=== PATIENT | male | born 1980 ===

== ENCOUNTER 2018-06-18 18:14 | Emergency (ER) | payer SELFPAY ==
--- NOTE | 2018-06-18 19:08 | C.PDOC ---
History Of Present Illness 38 year old male, with no significant past medical history, presents to the ED for evaluation of left-sided chest pain that has been intermittent for 2 days. Patient describes his pain as a sharp, stabbing sensation that is associated with mild shortness of breath. Patient's symptoms are non-pleuritic. Patient took some amlodipine from his friend, with mild relief. Otherwise, he denies fever, chills, night swears, radiating of pain to back, orthopnea, shortness of breath with exertion, leg swelling, recent trauma or surgery, hemoptysis, family history of DVT, or history of similar symptoms in the past. Chief Complaint (Nursing): Chest Pain History Per: Patient History/Exam Limitations: no limitations Onset/Duration Of Symptoms: Days (2), Intermittent Episodes Current Symptoms Are (Timing): Still Present Quality: Sharp, "Pain", Other (stabbing) Additional History Per: Patient Past Medical History Reviewed: Historical Data, Nursing Documentation, Vital Signs Vital Signs: Last Vital Signs Temp 98.5 F 06/18/18 18:18 Pulse 78 06/18/18 18:18 Resp 17 06/18/18 18:18 BP 148/94 H 06/18/18 18:18 Pulse Ox 99 06/18/18 18:18 - Medical History PMH: No Chronic Diseases Surgical History: No Surg Hx Family History: States: Unknown Family Hx - Social History Hx Alcohol Use: Yes Hx Substance Use: No - Immunization History Hx Tetanus Toxoid Vaccination: No Hx Influenza Vaccination: No Hx Pneumococcal Vaccination: No Review Of Systems Constitutional: Negative for: Fever, Chills, Sweats, Weakness, Malaise Eyes: Negative for: Pain, Vision Change, Eyelid Inflammation, Redness ENT: Negative for: Ear Pain, Ear Discharge, Nose Pain, Nose Congestion, Mouth Pain Cardiovascular: Positive for: Chest Pain (left-sided ). Negative for: Palpitations, Orthopnea Respiratory: Positive for: Shortness of Breath. Negative for: Cough, SOB with Excertion Gastrointestinal: Negative for: Nausea, Vomiting, Abdominal Pain, Constipation, Melena, Hematochezia Genitourinary: Negative for: Dysuria, Hematuria Musculoskeletal: Negative for: Neck Pain, Back Pain, Other (leg swelling ) Skin: Negative for: Rash, Lesions Neurological: Negative for: Change in Speech, Confusion, Seizures, Altered Mental Status, Headache Physical Exam - Physical Exam Appears: Well, Non-toxic, No Acute Distress Skin: Normal Color, Warm, Dry Head: Atraumatic, Normacephalic Eye(s): bilateral: Normal Inspection, PERRL, EOMI Ear(s): Bilateral: Normal Nose: Normal, No Flaring, No Discharge Oral Mucosa: Moist Tongue: Normal Appearing Lips: Normal Appearing Teeth: Normal Dentition Gingiva: Normal Appearing Throat: Normal, No Erythema, No Exudate Neck: Normal, Normal ROM, Supple, Other (no meningeal signs) Lymphatic: Normal Exam, No Adenopathy Chest: Symmetrical, No Deformity, No Tenderness Cardiovascular: Rhythm Regular, No Murmur Respiratory: Normal Breath Sounds, No Rales, No Rhonchi, No Wheezing Gastrointestinal/Abdominal: Normal Exam, Soft, No Tenderness Back: Normal Inspection, No CVA Tenderness, No Vertebral Tenderness Extremity: Normal ROM, Capillary Refill (less than 2 seconds ) Extremity: Bilateral: Atraumatic Neurological/Psych: Oriented x3, Normal Speech, Normal Cognition, No Cerebellar Signs, Normal Motor Gait: Steady ED Course And Treatment - Laboratory Results Result Diagrams: 06/18/18 19:22 06/18/18 19:22 ECG: Interpreted By Me, Viewed By Me ECG Rhythm: Sinus Rhythm Interpretation Of ECG: Normal Sinus Rhythm at rate 76bpm. No STEMI. Flat T wave in lead III. Rate From EC O2 Sat by Pulse Oximetry: 99 (on RA) Pulse Ox Interpretation: Normal Medical Decision Making Medical Decision Making: Impression: 38 year old male with intermittent chest pain. Low risk chest pain per Heart score and Low pretest well. Pt PERCED Out. No fever, chills or night sweats or cough. No body aches. Likely chest wall pain. Differential diagnoses include but are not limited to: chest wall pain Plan: * bloodwork * CXR * EKG * reassess and disposition Progress: 2210 Low pretest wells, PERC out Trop unremarkable heart score low: Age: 0 RF: 0 Story: 1 EK trop: 0 No MUNSON, orthopnea or PND XRay unremarkable clear for d/c home with return indications and f/u. Pt agreeable to plan. Disposition - Disposition Referrals: Parish Betancur MD [Staff Provider] - [facility] [Outside] [facility] [Outside] [facility] [Outside] Disposition: HOME/ ROUTINE Disposition Time: 22:13 Condition: GOOD Additional Instructions: ALINE LICEA, thank you for letting us take care of you today. Your provider was Braulio Gan and you were treated for CHEST PAIN ,SOB. The emergency medical care you received today was directed at your acute symptoms. If you were prescribed any medication, please fill it and take as directed. It may take several days for your symptoms to resolve. Return to the Emergency Department if your symptoms worsen, do not improve, or if you have any other problems. Please contact your doctor or call one of the physicians/clinics you have been referred to that are listed on the Patient Visit Information form that is included in your discharge packet. Bring any paperwork you were given at discharge with you along with any medications you are taking to your follow up visit. Our treatment cannot replace ongoing medical care by a primary care provider outside of the emergency department. Thank you for allowing the [facility] team to be part of your care today. If you had an X-Ray or CT scan: A Radiologist will review the ED reading if any change in treatment is needed we will contact you. If you had a blood, urine, or wound culture: It will take several days for the results, if any change in treatment is needed we will contact you. If you had an STI test: It will take 48 hours for the results. Please call after 1 week if you have not heard back. Instructions: Chest Pain (DC) Forms: [email or web address] (Japanese), [email or web address] (Kiswahili) Print Language: DANISH - Clinical Impression Clinical Impression: Chest pain - Scribe Statement The provider has reviewed the documentation as recorded by the Scribe (Ashley Kuhn) Provider Attestation: All medical record entries made by the Scribe were at my direction and personally dictated by me. I have reviewed the chart and agree that the record accurately reflects my personal performance of the history, physical exam, medical decision making, and the department course for this patient. I have also personally directed, reviewed, and agree with the discharge instructions and d isposition.
[2018-06-18 19:37] LABS: BASO % 0.3 % (0.0-2.0); EOS % 0.2 % (0.0-4.0); HEMOGLOBIN 14.1 g/dL (12.0-18.0); LYMPH # 1.9 K/uL (1.0-4.3); LYMPH % 21.7 % (20.0-40.0); MEAN CORPUSCULAR HEMOGLOBIN 31.2 pg (27.0-31.0); MEAN CORPUSCULAR HGB CONC 33.5 g/dL (33.0-37.0); MEAN PLATELET VOLUME 9.1 fL (7.2-11.7); MONO # 0.7 K/uL (0.0-0.8); MONO % 7.4 % (0.0-10.0); NEUT # 6.2 K/uL (1.8-7.0); NEUT % 70.4 % (50.0-75.0); RBC 4.52 Mil/uL (4.40-5.90); RED CELL DISTRIBUTION WIDTH 13.7 % (11.5-14.5); WHITE BLOOD COUNT 8.8 K/uL (4.8-10.8)
[2018-06-18 20:05] LABS: ALB/GLOB RATIO 1.6 (1.0-2.1); ALBUMIN 4.9 g/dL (3.5-5.0); ALT/SGPT 61 U/L (21-72); AST/SGOT 54 U/L (17-59); BLOOD UREA NITROGEN 21 mg/dL (9-20); CALCIUM 9.6 mg/dl (8.6-10.4); GFR NON-AFRICAN AMERICAN > 60
[2018-06-18 23:09] VITALS: BP 146/99; PULSE 75; RESP 16; TEMP 98
[2018-06-19 01:38] VITALS: O2SAT 99
--- NOTE | 2018-06-19 09:56 | RAD ---
Date of service: 06/18/2018 HISTORY: Chest pain COMPARISON: No prior. TECHNIQUE: Chest PA and lateral FINDINGS: LINES AND TUBES: None. LUNG AND PLEURA: The lungs are well inflated and clear. No pleural effusion or pneumothorax. HEART AND MEDIASTINUM: The heart is not enlarged. No aortic atherosclerotic calcifications present. The hilar and mediastinal contours are within normal limits. SKELETAL STRUCTURES: The bony structures are within normal limits for the patient's age. VISUALIZED UPPER ABDOMEN: Normal. OTHER FINDINGS: None. IMPRESSION: No active pulmonary disease.
--- NOTE | 2018-06-19 11:06 | CARD ---
APPROVED REPORT Date of service: 06/18/2018 EKG Measurement Heart [id number] <Conclusion> Normal sinus rhythm Incomplete right bundle branch block Borderline ECG
== END 2018-06-18 23:13 | disposition home or self-care (01) ==
LOC: C.ER 18:14
DX: R07.9 Chest pain, unspecified (principal)

== ENCOUNTER 2018-06-23 06:58 | Emergency (ER) | payer OTHER ==
[2018-06-23 07:13] VITALS: TEMP 98.7
[2018-06-23] MEDS ORDERED: Aspirin 325 mg EC Tablets PO STA (08:31)
[2018-06-23] MEDS ORDERED: Aspirin 325 mg EC Tablets PO ONE (08:49)
[2018-06-23 08:53] LABS: BASO % 0.4 % (0.0-2.0); EOS % 0.4 % (0.0-4.0); LYMPH # 1.1 K/uL (1.0-4.3); LYMPH % 15.9 % (20.0-40.0); MEAN CELL VOLUME 93.3 fL (80.0-94.0); MEAN CORPUSCULAR HEMOGLOBIN 31.6 pg (27.0-31.0); MEAN CORPUSCULAR HGB CONC 33.9 g/dL (33.0-37.0); MEAN PLATELET VOLUME 9.7 fL (7.2-11.7); MONO # 0.6 K/uL (0.0-0.8); MONO % 8.7 % (0.0-10.0); NEUT # 5.3 K/uL (1.8-7.0); NEUT % 74.6 % (50.0-75.0); NRBC % 0.1 % (0.0-2.0); RBC 4.75 Mil/uL (4.40-5.90); RED CELL DISTRIBUTION WIDTH 13.3 % (11.5-14.5); WHITE BLOOD COUNT 7.1 K/uL (4.8-10.8)
--- NOTE | 2018-06-23 08:57 | C.PDOC ---
History Of Present Illness 38 y/o male, otherwise well, presents to the ED complaining of left-sided chest pain radiating to the left shoulder for 2 days. Associated with SOB. He denies any headache, nausea, vomiting, diaphoresis, dizziness, abdominal pain, neck pain, fever, or chills. Pain is not modified by exertion, notes he was sitting at rest when the pain began. Patient was seen here on 06/18 for similar complaints, had EKG and blood work, and was discharged home. Time Seen by Provider: 06/23/18 07:24 Chief Complaint (Nursing): Chest Pain History Per: Patient History/Exam Limitations: no limitations Onset/Duration Of Symptoms: Days (x 2) Current Symptoms Are (Timing): Still Present Associated Symptoms: Dyspnea Alleviating Factors: None Past Medical History Reviewed: Historical Data, Nursing Documentation, Vital Signs Vital Signs: Last Vital Signs Temp 98.7 F 06/23/18 07:10 Pulse 72 06/23/18 07:10 Resp 20 06/23/18 07:10 BP 142/89 06/23/18 07:10 Pulse Ox 95 06/23/18 07:10 Surgical History: No Surg Hx Family History: States: Unknown Family Hx - Social History Hx Tobacco Use: No Hx Alcohol Use: Yes Hx Substance Use: No - Immunization History Hx Tetanus Toxoid Vaccination: No Hx Influenza Vaccination: No Hx Pneumococcal Vaccination: No Review Of Systems Except As Marked, All Systems Reviewed And Found Negative. Constitutional: Negative for: Fever, Chills, Sweats ENT: Negative for: Nose Congestion Cardiovascular: Positive for: Chest Pain Respiratory: Positive for: Shortness of Breath. Negative for: Cough, SOB with Excertion, Pleuritic Pain Gastrointestinal: Negative for: Nausea, Vomiting, Abdominal Pain Musculoskeletal: Negative for: Neck Pain, Back Pain Neurological: Negative for: Weakness, Numbness, Headache, Dizziness Physical Exam - Physical Exam Appears: Well, Non-toxic, No Acute Distress Skin: Normal Color, Warm, No Diaphoretic Head: Atraumatic, Normacephalic Eye(s): bilateral: Normal Inspection, PERRL, EOMI Oral Mucosa: Moist Neck: Normal ROM Chest: Symmetrical, No Tenderness (no reproducible pain on palpation) Cardiovascular: Rhythm Regular, No Murmur Respiratory: Normal Breath Sounds, No Rales, No Rhonchi, No Wheezing Gastrointestinal/Abdominal: Soft, No Tenderness, No Distention Extremity: Bilateral: Atraumatic, Normal Color And Temperature, Normal ROM Pulses: Left Dorsalis Pedis: Normal, Right Dorsalis Pedis: Normal Neurological/Psych: Oriented x3, Normal Speech ED Course And Treatment - Laboratory Results Result Diagrams: 06/23/18 08:45 06/23/18 08:45 ECG: Interpreted By Me, Viewed By Me ECG Rhythm: Sinus Rhythm Interpretation Of ECG: Incomplete R BBB. No ST elevations or depressions. Consistent with prior EKG on 06/18 Rate From EC O2 Sat by Pulse Oximetry: 95 (RA) Pulse Ox Interpretation: Normal Medical Decision Making Medical Decision Making: Impression: chest pain, SOB Differential diagnosis includes but is not limited to: angina vs gastritis vs musculoskeletal pain vs pleuritic pain Plan: - EKG - Blood work with cardiac enzymes - Urinalysis - 325 mg PO Aspirin Labs reviewed: Initial troponin negative. Will obtain 2nd set of enzymes at 4 hours. Repeat EKG is negative. 2nd trop negative. Final Impression: non-cardiac chest pain 12:30 On reassessment patient reports feeling better and remains AAOx3, in no acute distress. VSS. Patient is stable for discharge home, instructed to follow up in the clinic. Disposition Counseled Patient/Family Regarding: Studies Performed, Diagnosis, Need For Followup, Rx Given - Disposition Referrals: [facility] [place] [Outside] Disposition: HOME/ ROUTINE Disposition Time: 12:29 Condition: STABLE Prescriptions: Aspirin [Aspirin EC] 325 mg PO DAILY #20 tablet. Instructions: Chest Pain (DC) Forms: Gen Discharge Inst Romanian, [facility] (Romanian), Work Excuse - POA Present On Arrival: None Core Measure Indicators: Chest Pain - Clinical Impression Clinical Impression: Chest discomfort - Scribe Statement The provider has reviewed the documentation as recorded by the Magdy Stock Provider Attestation: All medical record entries made by the Magdy were at my direction and personally dictated by me. I have reviewed the chart and agree that the record accurately reflects my personal performance of the history, physical exam, medical decision making, and the department course for this patient. I have also personally directed, reviewed, and agree with the discharge instructions and disposition.
[2018-06-23 09:08] LABS: URINE BACTERIA RARE (<OCC); URINE BILIRUBIN NEGATIVE (NEGATIVE); URINE BLOOD NEGATIVE (NEGATIVE); URINE CLARITY Clear (Clear); URINE COLOR Yellow (YELLOW); URINE GLUCOSE (UA) NORMAL (Normal); URINE LEUKOCYTE ESTERASE NEG Leu/uL (Negative); URINE PROTEIN NEGATIVE (NEGATIVE); URINE UROBILINOGEN NORMAL mg/dL (0.2-1.0)
[2018-06-23 09:15] LABS: ALB/GLOB RATIO 1.7 (1.0-2.1); ALBUMIN 4.9 g/dL (3.5-5.0); ALT/SGPT 70 U/L (21-72); AST/SGOT 54 U/L (17-59); BLOOD UREA NITROGEN 17 mg/dL (9-20); CALCIUM 9.8 mg/dl (8.6-10.4); GFR NON-AFRICAN AMERICAN > 60
[2018-06-23 09:20] LABS: B-TYPE NATRIURETIC PEPTIDE 62.5 pg/mL (0-450)
[2018-06-23 09:38] LABS: BARBITURATES, UR NEGATIVE (NEGATIVE); BENZODIAZEPINES, UR NEGATIVE (NEGATIVE); OPIATES, UR NEGATIVE (NEGATIVE); PHENCYCLIDINE, UR NEGATIVE (NEGATIVE)
[2018-06-23 12:48] VITALS: BP 121/78; PULSE 70; RESP 17; O2SAT 97
--- NOTE | 2018-06-25 06:40 | CARD ---
APPROVED REPORT Date of service: 06/23/2018 EKG Measurement Heart [id number] [place] [id number] <Conclusion> Normal sinus rhythm Nonspecific intraventricular conduction delay Borderline ECG
--- NOTE | 2018-06-25 06:46 | CARD ---
APPROVED REPORT Date of service: 06/23/2018 EKG Measurement Heart [id number] <Conclusion> Normal sinus rhythm Rightward axis Incomplete right bundle branch block Borderline ECG
== END 2018-06-23 13:03 | disposition home or self-care (01) ==
LOC: C.ER 06:58
DX: R07.89 Other chest pain (principal)

== ENCOUNTER 2018-07-21 09:27 | Emergency (ER) | payer OTHER ==
[2018-07-21 09:46] VITALS: BMI 32.8
[2018-07-21 09:49] VITALS: RESP 18; O2SAT 97
--- NOTE | 2018-07-21 10:22 | C.PDOC ---
History Of Present Illness 38 y/o male, otherwise well, presents to the ED complaining of left-sided chest pain, waxing and waning for the past couple of days. Pain is localized to the left upper chest radiating to left shoulder, and is dull and intermittent. Associated with some SOB. Otherwise patient denies any dizziness, nausea, vomiting, sweats, abdominal pain, productive cough, focal weakness, or numbness. No prior cardiac hx. Patient denies strenuous labor. He has been seen twice before for the same complaint. Time Seen by Provider: 07/21/18 10:07 Chief Complaint (Nursing): Chest Pain History Per: Patient History/Exam Limitations: no limitations Onset/Duration Of Symptoms: Waxing/Waning, Intermittent Episodes Current Symptoms Are (Timing): Still Present Quality: Dull Past Medical History Reviewed: Historical Data, Nursing Documentation, Vital Signs Vital Signs: Last Vital Signs Temp 99.0 F 07/21/18 09:47 Pulse 79 07/21/18 09:47 Resp 18 07/21/18 09:47 BP 143/93 H 07/21/18 09:47 Pulse Ox 97 07/21/18 09:47 Surgical History: No Surg Hx Family History: States: Unknown Family Hx - Social History Hx Tobacco Use: No Hx Alcohol Use: Yes Hx Substance Use: No - Immunization History Hx Tetanus Toxoid Vaccination: No Hx Influenza Vaccination: No Hx Pneumococcal Vaccination: No Review Of Systems Except As Marked, All Systems Reviewed And Found Negative. Constitutional: Negative for: Fever, Sweats Eyes: Negative for: Vision Change Cardiovascular: Positive for: Chest Pain. Negative for: Palpitations Respiratory: Positive for: Shortness of Breath. Negative for: Cough, Sputum Gastrointestinal: Negative for: Nausea, Vomiting, Abdominal Pain Musculoskeletal: Negative for: Back Pain Skin: Negative for: Rash Neurological: Negative for: Weakness, Numbness, Headache, Dizziness Physical Exam - Physical Exam Appears: Non-toxic, No Acute Distress Skin: Normal Color, Warm, No Diaphoretic Head: Atraumatic, Normacephalic Eye(s): bilateral: Normal Inspection, PERRL, EOMI Oral Mucosa: Moist Neck: Normal ROM Chest: Symmetrical Cardiovascular: Rhythm Regular, No Murmur Respiratory: No Rales, No Rhonchi, No Wheezing, Other (Lungs CTA bilaterally) Gastrointestinal/Abdominal: Bowel Sounds (normal), Soft, No Tenderness, No Distention Extremity: Normal ROM, No Pedal Edema, No Calf Tenderness Pulses: Left Dorsalis Pedis: Normal, Right Dorsalis Pedis: Normal Neurological/Psych: Oriented x3, Normal Speech, Normal Cranial Nerves, Other (No focal deficits) ED Course And Treatment - Laboratory Results Result Diagrams: 07/21/18 11:11 07/21/18 11:11 O2 Sat by Pulse Oximetry: 97 (RA) Pulse Ox Interpretation: Normal Medical Decision Making Medical Decision Making: EKG: NSR @ 72 bpm, no ST elevations or depressions Old records reviewed, EKG appears consistent with prior studies. Initial Plan: - Motrin for pain control - Basic blood work w/ trop ordered Prior visits demonstrate patient has had cardiac work-ups including labs and CXR, all negative. Trop negative. EKG shows no acute changes. On reassessment patient is resting comfortably, in NAD. VSS. Patient is stable for discharge home. Counseled regarding diagnosis and follow- up instructions. Final Impression: Costochondritis Disposition Counseled Patient/Family Regarding: Diagnosis, Need For Followup, Rx Given - Disposition Referrals: [facility] [Outside] Disposition: HOME/ ROUTINE Disposition Time: 12:34 Condition: STABLE Prescriptions: Ibuprofen [Motrin] 600 mg PO TID #15 tab Instructions: Costochondritis Forms: Gen Discharge Inst Lao, [facility] (Lao), Work Excuse - POA Present On Arrival: None Core Measure Indicators: Chest Pain - Clinical Impression Clinical Impression: Chest wall pain - Scribe Statement The provider has reviewed the documentation as recorded by the Magdy Stock Provider Attestation: All medical record entries made by the Magdy were at my direction and personally dictated by me. I have reviewed the chart and agree that the record accurately reflects my personal performance of the history, physical exam, medical decision making, and the department course for this patient. I have also personally directed, reviewed, and agree with the discharge instructions and disposition.
[2018-07-21 11:20] LABS: BASO % 0.2 % (0.0-2.0); EOS # 0.1 K/uL (0.0-0.7); EOS % 0.5 % (0.0-4.0); HEMOGLOBIN 15.3 g/dL (12.0-18.0); LYMPH # 1.8 K/uL (1.0-4.3); LYMPH % 15.7 % (20.0-40.0); MEAN CORPUSCULAR HEMOGLOBIN 30.8 pg (27.0-31.0); MEAN CORPUSCULAR HGB CONC 33.4 g/dL (33.0-37.0); MEAN PLATELET VOLUME 9.4 fL (7.2-11.7); MONO # 0.9 K/uL (0.0-0.8); MONO % 7.9 % (0.0-10.0); NEUT # 8.5 K/uL (1.8-7.0); NEUT % 75.7 % (50.0-75.0); NRBC % 0.1 % (0.0-2.0); RBC 4.98 Mil/uL (4.40-5.90)
[2018-07-21 11:22] LABS: WHITE BLOOD COUNT 11.2 K/uL (4.8-10.8)
[2018-07-21 11:33] LABS: BLOOD UREA NITROGEN 15 mg/dL (9-20); CALCIUM 9.3 mg/dl (8.6-10.4); GFR NON-AFRICAN AMERICAN > 60
[2018-07-21 12:26] VITALS: BP 133/87; PULSE 67; TEMP 97.9
--- NOTE | 2018-07-22 11:25 | CARD ---
APPROVED REPORT Date of service: 07/21/2018 EKG Measurement Heart [id number] <Conclusion> Normal sinus rhythm Incomplete right bundle branch block Borderline ECG
== END 2018-07-21 12:55 | disposition home or self-care (01) ==
LOC: C.ER 09:27
DX: R07.89 Other chest pain (principal)